=== PATIENT | female | born 1945 | race Caucasian/White ===

== ENCOUNTER → 2019-07-24 13:29 | Outpatient (CLI) | payer MEDICARE, OTHER, SELFPAY ==
--- NOTE | ~2019-07-24 | MM_ITS ---
EXAMINATION: MM screening [facility] BI w [facility] HISTORY: Screening mammogram TECHNIQUE: Craniocaudal and mediolateral oblique 3-D tomosynthesis images were obtained and synthetic 2-D images were generated. CAD analysis was submitted and interpreted. COMPARISON: Comparison to multiple prior studies sequentially, with oldest reviewed study dated 02/18. BREAST PARENCHYMAL COMPOSITION: There are scattered areas of fibroglandular density. FINDINGS: There is no evidence of suspicious mass, calcification, or architectural distortion to sugg est malignancy in either breast. There has been no suspicious interval change. IMPRESSION: 1. No mammographic evidence of malignancy. 2. Recommend routine screening mammography in one year. BI-RADS Category 1: Negative Reviewed, dictated and finalized at location [facility]. [facility]
== END ==
PROVIDERS: PCP Internal Medicine; Visit Provider Internal Medicine
DX: Z12.31 Encounter for screening mammogram for malignant neoplasm of breast (principal)
CPT/HCPCS: 77063; 77067

== ENCOUNTER 2020-02-09 01:57 | Outpatient (CLI) | payer MEDICARE, OTHER, SELFPAY ==
[2020-02-09 16:34] LABS: SARS-CoV-2 RNA PCR Negative
== END 2020-02-09 01:58 | disposition home or self-care (01) ==
LOC: ANHCOVIDDT 01:59
PROVIDERS: PCP Internal Medicine; Visit Provider Internal Medicine Gastroenterology
DX: Z01.818 Encounter for other preprocedural examination (principal); Z20.828 Contact with and (suspected) exposure to other viral communicable diseases
CPT/HCPCS: 87635; C9803; U0003

== ENCOUNTER 2020-02-11 01:22 | Day surgery (SDC) | payer MEDICARE, OTHER, SELFPAY ==
[2020-02-02 14:35] VITALS: BMI 32.5
--- NOTE | 2020-02-11 08:28 | PM.HPGS ---
History of Present Illness History of Present Illness Consent: Risks, benefits, and alternatives have been discussed and questions answered. Patient agrees to proceed with procedure. Chief complaint: neoplasm screening Narrative: China Bryant is a 74 year old female here for screening colonoscopy . She has history of polyps PMFSH Family History Family History Mother Patient's mother is Father Patient's father is Other Family history of malignant neoplasm of breast Family history of malignant neoplasm of kidney Social History Social History Smoking status: Never smoker Second hand tobacco smoke exposure: No Alcohol intake: never Substance use: never Substance use type: does not use Living arrangements: alone Spiritual care concerns: No Meds Home Medications and Allergies Home Medications Medication Instructions Recorded Confirmed Type No Home Medications 10/08/19 02/02/20 History Allergies Allergy/AdvReac Type Severity Reaction Status Date / Time No Known Allergies Allergy Verified 02/02/20 14:34 Exam Resp: Auscultation: clear to auscultation bilaterally Cardio: Rate: regular rate Rhythm: regular rhythm GI: GI Palp: Yes Soft to palpation and No Tenderness to palpation present (GI) Assessment and Plan Assessment and plan (1) Colon cancer screening: Code(s): Z12.11 - Encounter for screening for malignant neoplasm of colon Status: Acute Assessment and Plan: Colonoscopy with possible biopsy or polypectomy or cautery or injection of substances.
[2020-02-11 08:43] VITALS: BP 152/84; PULSE 88; RESP 18; TEMP 36.5; O2SAT 98; BMI 31.1
[2020-02-11] MEDS: LACTATED RINGERS 1,000 ML 150 ML IV CONT (08:57)
--- NOTE | 2020-02-11 09:07 | WPDANESEPPF ---
Anes - Initial Pre Proc Eval Procedure: Operation Date: 02/11/20 09:00 Proposed Procedures p Screening Colonoscopy - Joe Soria MD Date/Time: 02/11/20 09:07 Surgeon: Joe Soria MD Pre Op Diagnosis: neoplasm screening Patient Data Age: 74 Gender: F Height: 5 ft 2 in Weight: 77.2 kg Last Vital Signs Temp 97.7 F 02/11/20 08:43 Pulse 88 02/11/20 08:43 Resp 18 02/11/20 08:43 BP 152/84 H 02/11/20 08:43 Pulse Ox 98 02/11/20 08:43 Allergies Allergy/AdvReac Type Severity Reaction Status Date / Time No Known Allergies Allergy Verified 02/11/20 08:29 Home Medications Medication Instructions Recorded Confirmed Type No Home Medications 10/08/19 02/11/20 History Patient hx anesthesia problems: none Family hx anesthesia problems: none PMFSH Past Medical History Medical History (Updated 02/11/20 @ 09:08 by Irwin Pillai MD) Fatigue Healthy adult Hyperlipidemia Family History Family History Mother Patient's mother is Father Patient's father is Other Family history of malignant neoplasm of breast Family history of malignant neoplasm of kidney Social History Social History Smoking status: Never smoker Second hand tobacco smoke exposure: No Alcohol intake: never Substance use: never Substance use type: does not use Living arrangements: alone Spiritual care concerns: No Anes - Eval Final PreProcedure Day of Procedure 02/11/20 09:07 Patient weight: normal Heart: regular rate and rhythm Lungs: clear to auscultation Airway: Mallampati scale class II Neurological: alert and oriented Last oral intake: >/= 8 hours ASA classification: II Emergent: no Anesthetic plan: proceed Anesthesia type and monitoring: general GIVS and standard monitoring Informed Consent: The patient's anesthetic plan and its attendant risks and benefits were discussed with the patient/family/POA. Questions were solicited and answers provided to the satisfaction of the patient/family/POA.
[2020-02-11 09:27] VITALS: BP 104/57; PULSE 75; RESP 16; O2SAT 98
[2020-02-11 09:37] VITALS: BP 109/69; PULSE 77; RESP 16; O2SAT 99
[2020-02-11 09:47] VITALS: BP 132/74; PULSE 67; RESP 16; O2SAT 99
== END 2020-02-11 10:15 | disposition home or self-care (01) ==
PROVIDERS: PCP Internal Medicine; Visit Provider Internal Medicine Gastroenterology
PROC: 0DJD8ZZ Inspection of Lower Intestinal Tract, Via Natural or Artificial Opening Endoscopic (ICD-10-PCS; CPT 45378; principal; 2020-02-11 09:00)
DX: Z12.11 Encounter for screening for malignant neoplasm of colon (principal); Z86.010 Personal history of colon polyps; K57.30 Diverticulosis of large intestine without perforation or abscess without bleeding; E78.5 Hyperlipidemia, unspecified
CPT/HCPCS: G0105; J2704; J7120

== ENCOUNTER 2022-05-29 14:41 | Outpatient (CLI) | payer MEDICARE, OTHER, SELFPAY ==
--- NOTE | 2022-05-29 14:55 | ECHO_ITS ---
Patient Info Name: China Bryant Age: 76 years : 1945 Gender: Female Ht: 62 in Wt: 168 lbs BSA: 1.85 m2 HR: 78 bpm BP: 171 / 75 mmHg Technical Quality: Fair Exam Date: 05/29/2022 3:04 PM Exam Location: [facility] Patient Status: Outpatient Admit Date: 05/29/2022 Staff Ordering Physician: Kwame Anderson PA-C Carpentry Teacher: Chelsea Alcaraz RCS Attending Provider: Kwame Anderson PA-C Referring Physician: Monica EASTON; Exam Type: CA echo doppler color flow Study Info Indications - localiized edema Complete two-dimensional, color flow and Doppler transthoracic echocardiogram is performed. Summary 1. Complete two-dimensional, color flow and Doppler transthoracic echocardiogram is performed. 2. Left ventricular chamber dimension is normal. 3. Left ventricular systolic function is normal, estimated at 60-65%. 4. The left ventricular diastolic function is grade I diastolic dysfunction. 5. E/e' 12 is mildly elevated. 6. Left atrial chamber dimension is mildly enlarged. 7. There is trace tricuspid valve regurgitation. 8. No pulmonary hypertension, estimated pulmonary arterial systolic pressure is 24 mmHg. Left Ventricle E/e' 12 is mildly elevated. Left ventricular chamber dimension is normal. Left ventricular systolic function is normal, estimated at 60-65%. The left ventricular diastolic function is grade I diastolic dysfunction. Right Ventricle Right ventricular chamber dimension is normal. Right ventricular systolic function is normal. Left Atria Left atrial chamber dimension is mildly enlarged. Right Atria Right atrial chamber dimension is normal. Aortic Valve The aortic valve is trileaflet. There is no aortic valve stenosis. There is no aortic valve regurgitation. Pulmonic Valve There is no pulmonic regurgitation. Mitral Valve There is no mitral valve stenosis. There is no mitral valve regurgitation. Tricuspid Valve There is trace tricuspid valve regurgitation. No pulmonary hypertension, estimated pulmonary arterial systolic pressure is 24 mmHg. Pericardium/Pleural There is no pericardial effusion. Inferior Vena Cava Normal inferior vena cava with >50% collapse upon inspiration consistent with normal right atrial pressure, 5 mmHg. Aorta The aortic root size at the sinus of Valsalva is normal. Left Ventricular Outflow Tract Name Value Normal LVOT 2D LVOT Diameter 2.0 cm LVOT Doppler LVOT Peak Gradient 4 mmHg LVOT Mean Gradient 2 mmHg LVOT VTI 21 cm LVOT VTI/AV VTI Ratio 0.8 LVOT Stroke Volume 65 ml LVOT CO 13.3 l/min LVOT CI 7.2 l/min/m2 Pulmonic Valve Name Value Normal PV Doppler
== END 2022-05-29 14:42 | disposition home or self-care (01) ==
LOC: ANHCARD 14:41
PROVIDERS: PCP Internal Medicine; Visit Provider Physician Assistant
DX: R60.0 Localized edema (principal); Z12.11 Encounter for screening for malignant neoplasm of colon
CPT/HCPCS: 93306

== ENCOUNTER 2023-05-19 12:18 | Emergency (ER) | payer MEDICARE, OTHER, SELFPAY ==
[2023-05-19 12:53] VITALS: BP 102/77; PULSE 76; RESP 16; TEMP 36.8; O2SAT 99
--- NOTE | 2023-05-19 13:56 | ED.SKABFB ---
HPI - Skin/Abscess/Foreign Bdy General Chief complaint: Skin/Abscess/Foreign Body Stated complaint: skin red around eyes Time Seen by Provider: 05/19/23 13:57 Source: patient Mode of arrival: ambulatory Limitations: no limitations History of Present Illness HPI narrative: 77 year female presents with complaint bilateral eye redness, itching, drainage For 2-3 days. Also reports redness surrounding left eye. Denies pain. No vision changes. All systems reviewed and negative except as noted above. Related Data Allergies Allergy/AdvReac Type Severity Reaction Status Date / Time No Known Allergies Allergy Verified 02/05/23 08:53 Review of Systems Review of Systems: CONSTITUTIONAL: Denies fever, chills, or sweats. EYES: Denies visual changes Reports bilateral eye redness, itching, discharge. ENT: Denies rhinorrhea, congestion, sore throat, or otalgia. CARDIOVASCULAR: Denies chest pain, palpitations, or edema. RESPIRATORY: Denies cough or dyspnea. GASTROINTESTINAL: Denies abdominal pain, nausea, vomiting, or diarrhea. GENITOURINARY: Denies dysuria or hematuria. SKIN: Denies rash or itching. MUSCULOSKELETAL: Denies back pain, joint pain, or myalgia. NEUROLOGIC: Denies headache, numbness, or weakness. PSYCHIATRIC: Denies anxiety or depression. All other systems reviewed are negative, except as documented in HPI. [facility] Past Medical History Medical History Fatigue Healthy adult Hyperlipidemia Family History Family History Mother Patient's mother is Father Patient's father is Other Family history of malignant neoplasm of breast Family history of malignant neoplasm of kidney Social History Social History Smoking status: Never smoker Second hand tobacco smoke exposure: No Alcohol intake: never Substance use: never Substance use type: does not use Current Housing: Decline to Answer Concerned About Future Housing: Decline to Answer Difficulty Paying Gas/Electric Bills: Decline to Answer Difficulty Paying for Meds: Decline to Answer Currently Unemployed: Decline to Answer Education: Decline to Answer Difficulty w/ Childcare or Family Care: Decline to Answer Living arrangements: alone Spiritual care concerns: No Comments At time of signature, agree with nursing past medical, surgical, social and family history. There is no relevant family history pertinent to the presenting complaint. Exam Narrative: GENERAL: This is a well-nourished, well-developed patient, in no apparent distress. HEAD: normocephalic, atraumatic. EYES: PERRL. Sclera and conjunctiva erythematous bilaterally. Purulent drainage to bilateral eyes. Erythema surrounding left eye cellulitis versus eczema. No significant swelling. No fluctuance. EARS: External ears normal NOSE: External nose normal NECK: Neck supple, non-tender without lymphadenopathy, masses or thyromegaly. CARDIOVASCULAR: Regular rate and rhythm without murmurs, gallops, or rubs. RESPIRATORY: Clear to auscultation. Breath sounds equal bilaterally. No wheezes, rales, or rhonchi. SKIN: warm, Dry, intact with no suspicious lesions or rash, good texture and turgor. NEURO: awake, alert, and oriented to person, place and time. There were no obvious focal neurologic abnormalities. EXTREMITIES: No joint tenderness, effusion, or edema noted. Course Course Level of Care: Express Care Visit Vital Signs Vital signs: Vital Signs Temperature 36.8 C 05/19/23 12:53 Pulse Rate 76 05/19/23 12:53 Respiratory Rate 16 05/19/23 12:53 Blood Pressure 102/77 05/19/23 12:53 Pulse Oximetry 99 05/19/23 12:53 Oxygen Delivery Room Air 05/19/23 12:53 Temperature 36.8 C 05/19/23 12:53 Pulse Rate 76 05/19/23 12:53 Respiratory Rat
== END 2023-05-19 14:17 | disposition home or self-care (01) ==
PROVIDERS: Emergency Provider Nurse Practitioner Family; PCP Internal Medicine
DX: H10.33 Unspecified acute conjunctivitis, bilateral (principal); L03.213 Periorbital cellulitis; E78.5 Hyperlipidemia, unspecified
CPT/HCPCS: 99213; G0463

== ENCOUNTER 2023-08-11 09:14 | Emergency (ER) | payer MEDICARE, OTHER, SELFPAY ==
--- NOTE | 2023-08-11 09:27 | ED.GENADULT ---
HPI - General Adult General Chief complaint: Skin/Abscess/Foreign Body Stated complaint: skin around right irritated Time Seen by Provider: 08/11/23 09:30 Source: patient Mode of arrival: ambulatory Limitations: dementia History of Present Illness HPI narrative: 77-year-old female with a history of dementia presented for complaint of right eye irritation today. patient is a poor historian. She appears to have redness surrounding the right eye. She states this is the same thing I had 1 month ago. Per notes she was seen 05/19/2023, diagnosed with conjunctivitis and possible cellulitis. Treated with ofloxacin and Augmentin at that time. Patient currently denies vision changes, eye pain, photophobia, or drainage. Related Data Allergies Allergy/AdvReac Type Severity Reaction Status Date / Time No Known Allergies Allergy Verified 08/11/23 09:22 Review of Systems Review of Systems: ROS limited due to hx dementia. CONSTITUTIONAL: Denies fever EYES:Endorses swelling, redness right eye; denies FB sensation, photophobia, visual changes ENT: Denies rhinorrhea, congestion, sore throat, or otalgia. CARDIOVASCULAR: Denies chest pain, palpitations RESPIRATORY: Denies cough or dyspnea. SKIN: Denies rash, itching NEUROLOGIC: Denies headache All systems reviewed & are unremarkable except as noted in HPI and below PMFSH Past Medical History Medical History (Updated 08/11/23 @ 09:44 by Kerri Black APRN) Dementia Fatigue Healthy adult Hyperlipidemia Family History Family History Mother Patient's mother is Father Patient's father is Other Family history of malignant neoplasm of breast Family history of malignant neoplasm of kidney Social History Social History Smoking status: Never smoker Second hand tobacco smoke exposure: No Alcohol intake: never Substance use: never Substance use type: does not use Current Housing: Decline to Answer Concerned About Future Housing: Decline to Answer Difficulty Paying Gas/Electric Bills: Decline to Answer Difficulty Paying for Meds: Decline to Answer Currently Unemployed: Decline to Answer Education: Decline to Answer Difficulty w/ Childcare or Family Care: Decline to Answer Living arrangements: alone Spiritual care concerns: No Comments At time of signature, I have reviewed and agree with nursing past medical, surgical, social and family history unless otherwise noted. Please see nursing chart for further information. There is no relevant family history pertinent to the presenting complaint Exam Narrative: GENERAL: Well-appearing HEAD: Normocephalic, atraumatic. EYES: mild right conjunctival injection, surrounding skin with mild erythema and minimal swelling. Appears c/w rubbing the eye. No eye lid swelling or stye. PERRLA, EOMI. Lid eversion shows no FB. No apparent photosensitivity. Pt minimally cooperative for exam. ENT: Mucous membranes pink and moist. No rhinorrhea. TMs with excess cerumen bilaterally. SKIN: Warm, dry, flaky Normal skin turgor. BLE edema. NEURO: alert and oriented x1-2 PSYCH: Appears irritable. Course Course Emergency Course: Patient is aware of diagnosis, understands and agrees to treatment plan. Anticipatory guidance given. Patient agrees to follow-up as directed and is aware of reasons to seek care at the emergency department. Portions of this record may have been created with voice recognition software Level of Care: Express Care Visit Medical Decision Making MDM Narrative Medical decision making narrative: Discussed physical exam findings. Advised supportive measures and signs/symptoms to go to the ER. Pt is appropriate for outpt treatment and f/u. Pt is not accompanied by anyone today, states they are in the car. HPI and ROS limited due to pt's
[2023-08-11 09:28] VITALS: BP 164/62; PULSE 75; RESP 16; TEMP 37.2; O2SAT 99
== END 2023-08-11 09:51 | disposition home or self-care (01) ==
PROVIDERS: Emergency Provider Nurse Practitioner Family; PCP Internal Medicine
DX: H10.9 Unspecified conjunctivitis (principal); F03.90 Unspecified dementia, unspecified severity, without behavioral disturbance, psychotic disturbance, mood disturbance, and anxiety; E78.5 Hyperlipidemia, unspecified
CPT/HCPCS: 99213; G0463